=== PATIENT | male | born 1990 | race Caucasian/White ===

== ENCOUNTER 2018-09-15 04:13 | Emergency (ER) | payer SELFPAY ==
[~2018-09-15] VITALS: Ht 165.1 cm; Wt 60.7 kg
[2018-09-15 04:15] VITALS: BP 148/99
[2018-09-15] MEDS ORDERED: KETOROLAC 30 MG/1 ML ONE (04:45)
--- NOTE | 2018-09-15 04:50 | NUR ---
This rn asked pa for potential of blood cultures prior to abx. Pa states no need at this time.
[2018-09-15] MEDS ORDERED: AMPICILLIN/SULBACTAM 3 GM in SODIUM CHLORIDE 0.9% 100 ML IV ONE (05:00)
[2018-09-15] MEDS ORDERED: KETOROLAC 30 MG/1 ML IVPush ONE (05:00)
[2018-09-15 05:02] LABS: BASOPHILS # (AUTO) 0.07 x10^3/uL (0-0.1); BASOPHILS % (AUTO) 1 % (0-1); EOSINOPHILS # (AUTO) 0.16 x10^3/uL (0-0.4); EOSINOPHILS % (AUTO) 2 % (1-7); LYMPHOCYTES # (AUTO) 2.18 x10^3/uL (1-3.4); LYMPHOCYTES % (AUTO) 24 % (22-44); MD NO; MEAN CORPUSCULAR HEMOGLOBIN 31.6 pg (27.5-34.5); MEAN CORPUSCULAR HGB CONC 34.6 g/dL (33.2-36.2); MEAN CORPUSCULAR VOLUME 91.5 fL (81-97); MEAN PLATELET VOLUME 8.7 fL (7.4-10.4); MONOCYTES # (AUTO) 0.82 x10^3/uL (0.2-0.8); MONOCYTES % (AUTO) 9 % (2-9); NEUTROPHILS # (AUTO) 6.02 x10^3/uL (1.8-6.8); NEUTROPHILS % (AUTO) 65 % (42-75); PLATELET COUNT 322 x10^3/uL (130-400)
[2018-09-15 05:14] LABS: ALBUMIN 4.2 g/dL (3.4-5.0); ANION GAP 6 mmol/L (5-15); CALCIUM 9.3 mg/dL (8.5-10.1); CHLORIDE 110 mmol/L (98-107); CREATININE 1.06 mg/dL (0.7-1.3)
== END 2018-09-15 05:48 | disposition home or self-care (01) ==
LOC: ED 05:41
DX: K02.9 Dental caries, unspecified (principal); K08.89 Other specified disorders of teeth and supporting structures
CPT/HCPCS: 36415; 80048; 82040; 85025; 96365; 96375; 99283; J0295; J1885